=== PATIENT | male | born 1995 | race Caucasian/White ===

== ENCOUNTER 2018-11-28 16:24 | Emergency (ER) | payer BC ==
[2018-11-28 17:08] VITALS: BP 135/69
--- NOTE | 2018-11-28 17:19 | UC ---
Complaint Male HPI - HPI Summary HPI Summary: pt states he had a "deep ache in both testicles" today. he noted a little white on the inside of his shorts which he describes as "a discharge" so he is worried about an std. he denies any current discharge, frequency, urgency and burning with urination. he states I've been with the same person for 2 months and she has nothing. he denies hx of any std's, fever, abdominal pain and testicular swelling. when question about activity at time of onset, pt had been lifting several heavy boxes. - History of Current Complaint Chief Complaint: UCGU Stated Complaint: PERSONAL Time Seen by Provider: 11/28/18 17:04 Hx Obtained From: Patient Onset/Duration: Sudden Onset Pain Intensity: 0 Aggravating Factor(s): Nothing Alleviating Factor(s): Nothing Associated Signs And Symptoms: Negative: Fever, Hematuria, Dysuria, Nausea, Vomiting(# Of Episodes =) - Allergies/Home Medications Allergies/Adverse Reactions: Allergies Allergy/AdvReac Type Severity Reaction Status Date / Time No Known Allergies Allergy Verified 11/28/18 17:01 Home Medications: Home Medications Citalopram TAB* [Celexa TAB*] 10 mg PO DAILY 11/28/18 [History Confirmed ] Trazodone HCl 100 mg PO DAILY 11/28/18 [History Confirmed 11/28/18] PMH/Surg Hx/FS Hx/Imm Hx Previously Healthy: Yes - Surgical History Surgical History: None - Family History Known Family History: Positive: Non-Contributory - Social History Occupation: Employed Full-time Alcohol Use: Weekly Substance Use Type: None Substance Use Comment - Amount & Last Used: steroids Smoking Status (MU): Never Smoked Tobacco Review of Systems All Other Systems Reviewed And Are Negative: Yes Constitutional: Negative: Fever, Chills Gastrointestinal: Negative: Abdominal Pain, Vomiting, Nausea Genitourinary: Positive: Vaginal/Penile Discharge - "a little white in shorts". Negative: Dysuria, Hematuria, Frequency, Urgency, Vaginal/Penile Burning, Vaginal/Penile Itching Physical Exam Triage Information Reviewed: Yes Appearance: Well-Appearing Vital Signs: Initial Vital Signs Temp 98.7 F 11/28/18 17:04 Pulse 84 11/28/18 17:04 Resp 16 11/28/18 17:04 BP 135/69 11/28/18 17:04 Pulse Ox 98 11/28/18 17:04 Vital Signs Reviewed: Yes Eyes: Positive: Conjunctiva Clear Neck: Positive: Supple Respiratory: Positive: No respiratory distress Cardiovascular: Positive: RRR Abdomen Description: Positive: Nontender, No Organomegaly, Soft Bowel Sounds: Positive: Present Male Genital Exam: Positive: Other - No inguinal adenoapthy. Strong femoral pulses. No lesions or urethral discharge. Testicles down x2. Creamasteric reflex on R is brisk and L is almost absent. No scrotal swelling. Testicles are non tender and cords are without swelling or tenderness. Inguinal canals are patent/no masses. Musculoskeletal: Positive: ROM Intact Neurological: Positive: Alert Psychological: Positive: Age Appropriate Behavior Skin Exam: Normal Skin: Negative: Rashes Complaint Male Course/Dx - Course Course Of Treatment: pt refusing emergent ER evaluation for possible testicular torsion. I advised of risk for worsening and loss of testicle but he still declined. he is A&Ox3 and is able to refuse thus I must respect his wish; however, he will be leaving a.'' i will complete the std testing at his request. - Differential Dx/Diagnosis Differential Diagnosis/HQI/PQRI: Other - need to exclude testicular torsion based on hx and PE. doubt std but pt request gc, chlamydia and trich testing only. he declined hiv and syphilius. Provider Diagnosis: Testicular pain Discharge - Sign-Out/Discharge Documenting (check all that apply): Patient Departure All imaging exams completed and their final reports reviewed: No Studies - Discharge Plan Condition: Stable Disposition: AGAINST MEDICAL ADVICE Patient Education Materials: Sexually Transmitted Diseases (ED), Testicle Pain (ED) Referrals: Angélica Montaño NP [Primary Care Provider] - As Soon As Possible Additional Instructions: GO TO THE ER AT ANY TIME IF YOU CHANGE YOUR MIND. - Billing Disposition and Condition Condition: STABLE Disposition: Against Medical Advice
[2018-11-30 13:07] LABS: Neisseria gonorrhoeae (GC) RNA Negative (Negative)
[2018-11-30 22:20] LABS: Trichomonas vaginalis SOURCE: Urine (Male Patient)
== END 2018-11-28 17:41 | disposition left against medical advice (07) ==
LOC: UCCORT 16:24
DX: N50.812 Left testicular pain (principal); N50.811 Right testicular pain
CPT/HCPCS: 87491; 87591; 87661; 99201; G0463